=== PATIENT | male | born 1955 | race Caucasian/White ===

== ENCOUNTER → 2021-08-14 | Outpatient (CLI) | payer MEDICARE | LOC: US 10:30 | DX: Z13.6 Encounter for screening for cardiovascular disorders (principal) | CPT/HCPCS: 76706 ==

== ENCOUNTER → 2021-09-24 | Day surgery (SDC) | payer MEDICARE ==
[~2021-09-24] MED LIST: OMEPRAZOLE20 M1 PO
== END | disposition home or self-care (01) ==
LOC: OR 06:18
DX: D12.3 Benign neoplasm of transverse colon (principal); K64.1 Second degree hemorrhoids; K64.4 Residual hemorrhoidal skin tags; E66.9 Obesity, unspecified; K21.00 Gastro-esophageal reflux disease with esophagitis, without bleeding; Z72.0 Tobacco use; Z86.010 Personal history of colon polyps; Z68.32 Body mass index [BMI] 32.0-32.9, adult; Z79.899 Other long term (current) drug therapy
CPT/HCPCS: J2704; J7030; J7040